=== PATIENT | female | born 2000 | race Caucasian/White ===

== ENCOUNTER 2019-03-02 00:30 | Emergency (ER) | payer MEDICAID ==
[~2019-03-02] VITALS: Ht 172.7 cm; Wt 115.7 kg
[2019-03-02 00:41] VITALS: BP_SYST 140
[2019-03-02 02:06] VITALS: BP_SYST 140
== END 2019-03-02 02:06 | disposition home or self-care (01) ==
LOC: SED 00:30
DX: S80.12XA Contusion of left lower leg, initial encounter (principal); S80.11XA Contusion of right lower leg, initial encounter; W11.XXXA Fall on and from ladder, initial encounter; Y93.89 Activity, other specified; Y92.89 Other specified places as the place of occurrence of the external cause; Y99.8 Other external cause status
CPT/HCPCS: 93970; 99284